=== PATIENT | female | born 1965 | race African-American/Black ===

== ENCOUNTER 2022-03-21 07:23 | Day surgery (SDC) | payer BC ==
[2022-03-21] MEDS ORDERED: Ringers Lactate 1,000 ML IV ONE (07:51)
[2022-03-21 07:55] VITALS: O2SAT 100
[2022-03-21] MEDS ORDERED: LIDOCAINE 1% MPF 5 ML VIAL ONE (09:33)
[2022-03-21] MEDS ORDERED: propofoL 200 MG/20 ML VIAL IV ONE (09:33)
[2022-03-21 11:18] VITALS: BP 131/42; TEMP 98
== END 2022-03-21 11:03 | disposition home or self-care (01) ==
LOC: OR 07:23
PROVIDERS: ATTEND Surgery
PROC: 0DJD8ZZ Inspection of Lower Intestinal Tract, Via Natural or Artificial Opening Endoscopic (ICD-10-PCS; principal; 2022-03-21 08:30)
DX: Z12.11 Encounter for screening for malignant neoplasm of colon (principal); F41.9 Anxiety disorder, unspecified; F32.A Depression, unspecified
CPT/HCPCS: 45378; J2704; J2001; J7120